=== PATIENT | female | born 1935 | race Caucasian/White ===

== ENCOUNTER 2019-03-30 09:20 | Emergency (ER) | payer MEDICARE ==
--- NOTE | 2019-03-30 09:29 | ED ---
Complex/Multi-Sys Presentation - HPI Summary HPI Summary: 83 year old F brought in by [place] ambulance from [facility] to [facility] with a chief complaint of pain all over s/p unwitnessed fall down 5 stair steps one hour ago this morning per EMS and [facility] nurse. Symptoms aggravated by nothing. Symptoms alleviated by nothing. Patient has hx dementia. EMS reports that patient has pain in her head, buttocks, legs, and arms. EMS denies LOC. Upon EMS arrival to [facility], patient was lying down on her back at the bottom of the stair steps. EMS states that patient normally uses a wheelchair. EMS states that patient is not taking blood thinners. - History Of Current Complaint Hx Obtained From: EMS, Other: - [facility] nurse Onset/Duration: Lasting Hours - 1, Still Present Timing: Constant Aggravating Factor(s): Nothing Alleviating Factor(s): Nothing Associated Signs And Symptoms: Positive: Other - pain in her head, buttocks, legs, and arms; NEGATIVE: LOC - Allergies/Home Medications Allergies/Adverse Reactions: Allergies Allergy/AdvReac Type Severity Reaction Status Date / Time donepezil [From Aricept] Allergy Unknown Verified 03/30/19 09:38 Reaction Details hydrochlorothiazide Allergy Unknown Verified 03/30/19 09:38 Reaction Details meperidine [From Demerol] Allergy Unknown Verified 03/30/19 09:38 Reaction Details PMH/Surg Hx/FS Hx/Imm Hx Previously Healthy: No Sensory History: Denies: Hx Legally Blind Opthamlomology History: Denies: Hx Legally Blind Neurological History: Reports: Hx Dementia - Surgical History Surgery Procedure, Year, and Place: LEVEL 5 CAVEAT: Surgical hx unobtainable from patient because patient has dementia - Family History Family History: LEVEL 5 CAVEAT: Family hx unobtainable from patient because patient has dementia - Social History Lives: [facility] Alcohol Use: None Hx Substance Use: No Substance Use Type: Reports: None Hx Tobacco Use: No Smoking Status (MU): Unknown if Ever Smoked Review of Systems Positive: Other - "pain all over;" pain in head, buttocks, legs, and arms Neurological: Negative - LOC All Other Systems Reviewed And Are Negative: Yes Physical Exam - Summary Physical Exam Summary: VITAL SIGNS: Reviewed. GENERAL: Patient is a well-developed and nourished FEMALE who is lying comfortable in the stretcher. Patient is not in any acute respiratory distress. HEAD AND FACE: No signs of trauma. No ecchymosis, hematomas or skull depressions. No sinus tenderness. EYES: PERRLA, EOMI x 2, No injected conjunctiva, no nystagmus. EARS: Hearing grossly intact. Ear canals and tympanic membranes are within normal limits. MOUTH: Oropharynx within normal limits. NECK: Supple, trachea is midline, no adenopathy, no JVD, no carotid bruit, no c- spine tenderness, neck with full ROM. CHEST: Symmetric, no tenderness at palpation LUNGS: Clear to auscultation bilaterally. No wheezing or crackles. CVS: Regular rate and rhythm, S1 and S2 present, no murmurs or gallops appreciated. ABDOMEN: Soft, non-tender. No signs of distention. No rebound no guarding, and no masses palpated. Bowel sounds are normal. EXTREMITIES: FROM in all major joints, no edema, no cyanosis or clubbing. NEURO: Patient is demented. She is alert but not oriented. SKIN: Dry and warm. Triage Information Reviewed: Yes Vital Signs Reviewed: Yes Diagnostics - Laboratory Lab Statement: Any lab studies that have been ordered have been reviewed, and results considered in the medical decision making process. - Radiology Hand x-ray Radiology Interpretation Completed By: Radiologist Summary of Radiographic Findings: 1. Negative for fracture. 2. Advanced osteoarthritis. ED physician has reviewed this report. - CT Brain CT Interpretation Completed By: Radiologist Summary of CT Findings: 1. No CT evidence for acute intracranial process or traumatic injury. 2. Involutional change and stigmata of chronic small vessel ischemic isease similar to the prior exam. Chronic lacunar infarct at the RIGHT frontal lobe white matter. ED physician has reviewed this report. Cervical spine CT Interpretation Completed By: Radiologist Summary of CT Findings: 1. No CT evidence for traumatic cervical spine injury. ED physician has reviewed this report. Re-Evaluation - Re-Evaluation First Eval Re-Evaluation Time: 11:03 Comment: Patient ambulates in the ED. Complex Multi-Symp Course/Dx Assessment/Plan: 83 year old F brought in by [place] ambulance from [facility] to [facility] with a chief complaint of pain all over s/p unwitnessed fall down 5 stair steps one hour ago this morning per EMS and [facility] nurse. Symptoms aggravated by nothing. Symptoms alleviated by nothing. Patient has hx dementia. EMS reports that patient has pain in her head, buttocks, legs, and arms. EMS denies LOC. Upon EMS arrival to [facility], patient was lying down on her back at the bottom of the stair steps. EMS states that patient normally uses a wheelchair. EMS states that patient is not taking blood thinners. Hand x ray IMPRESSION: 1. Negative for fracture. 2. Advanced osteoarthritis. Head CT IMPRESSION: 1. No CT evidence for acute intracranial process or traumatic injury. 2. Involutional change and stigmata of chronic small vessel ischemic disease similar to the prior exam. Chronic lacunar infarcts at the RIGHT frontal lobe white matter. C spine CT IMPRESSION: 1. No CT evidence for traumatic cervical spine injury. Patient is demented and has no other complaints. The patient was able to ambulate therefore the patient will be discharged back to the skilled nursing for further workup and management. Patient is hemodynamically stable. - Diagnoses Provider Diagnoses: Fall Discharge - Sign-Out/Discharge Documenting (check all that apply): Patient Departure - Discharge Patient Received Moderate/Deep Sedation with Procedure: No - Discharge Plan Condition: Stable Disposition: HOME Patient Education Materials: Fall Prevention for Older Adults (ED) Referrals: Nupur Nolasco MD [Primary Care Provider] - 3 Days Additional Instructions: Follow up with your primary care provider in 3 days. Return to the Emergency Department for new or worsening symptoms. - Billing Disposition and Condition Condition: STABLE Disposition: Home - Attestation Statements Document Initiated by Scribe: Yes Documenting Scribe: Natacha Hargrove Provider For Whom Leonidas is Documenting (Include Credential): Tony Jung MD Scribe Attestation: Natacha Cheatham scribed for Tony Jung MD on 03/30/19 at 1202. Scribe Documentation Reviewed: Yes Provider Attestation: The documentation as recorded by the Natacha madrigal accurately reflects the service I personally performed and the decisions made by , Tony Jung MD Status of Scribe Document: Viewed
[2019-03-30 11:28] VITALS: BP 138/68
== END 2019-03-30 11:36 | disposition home or self-care (01) ==
LOC: ED 09:20
DX: R52 Pain, unspecified (principal); M19.90 Unspecified osteoarthritis, unspecified site; W10.9XXA Fall (on) (from) unspecified stairs and steps, initial encounter
CPT/HCPCS: 70450; 72125; 99282